=== PATIENT | male | born 1940 | race Caucasian/White ===

== ENCOUNTER 2018-11-29 08:24 | Inpatient (IN) | payer OTHER ==
[~2018-11-29 08:24] MED LIST: METOPROLOL 5 MG INJ
[2018-11-29] MEDS: VANCOMYCIN 1 GM (PMX) 250 ML IVPB (08:30)
[2018-11-29] MEDS: morphine 4 MG/ML VIAL IV ×2 (08:58→11:27)
[2018-11-29] MEDS: ACETAMINOPHEN 325 MG TAB PO (08:58)
[2018-11-29] MEDS: ONDANSETRON 4 MG INJ IV ×2 (08:58→11:28)
[2018-11-29] MEDS: SODIUM CHLORIDE 0.9% 1L BAG IV* (09:00)
[2018-11-29] MEDS: AZTREONAM 1 GM/NS (PMX) 50 ML IVPB (09:02)
[2018-11-29 09:04] LABS: ADD MAN DIFF? NO
[2018-11-29 09:11] LABS: WHITE BLOOD COUNT 14.1 10^3/ul (4.8-10.8)
[2018-11-29 09:11] LABS: ABNORMAL IP MESSAGE 1; BASOPHILS % 0.2 % (0.0-2.0); HEMATOCRIT 30.5 % (42.0-52.0); HEMOGLOBIN 9.8 g/dl (14.0-18.0); LYMPHOCYTES # 0.8 10^3/ul (0.8-2.9); LYMPHOCYTES % 5.5 % (15.0-51.0); MEAN CORPUSCULAR HEMOGLOBIN 19.6 pg (29.0-33.0); MEAN CORPUSCULAR HGB CONC 32.1 g/dl (32.0-37.0); MONOCYTE # 0.9 10^3/ul (0.3-0.9); MONOCYTES % 6.5 % (0.0-11.0); NEUTROPHIL # 12.3 10^3/ul (1.6-7.5); NEUTROPHILS % 86.8 % (39.0-77.0); NUCLEATED RED BLOOD CELLS% 0.1 /100WBC (0.0-0.0); PLATELET COUNT 203 10^3/UL (140-415); POSITIVE DIFF @See below; RED CELL DISTRIBUTION WIDTH 22.7 % (11.5-14.5)
[2018-11-29 09:24] LABS: LIPASE 44 U/L (23-300)
[2018-11-29 09:26] LABS: ADD UMIC YES; ALANINE AMINOTRANSFERASE 100 IU/L (13-69); ALBUMIN 3.6 g/dl (3.3-4.9); ALBUMIN/GLOBULIN RATIO 1.02; ALKALINE PHOSPHATASE 439 IU/L (42-121); ANION GAP 11 (5-13); ASPARTATE AMINO TRANSFERASE 122 IU/L (15-46); BLOOD UREA NITROGEN 29 mg/dl (7-20); CALCIUM 10.9 mg/dl (8.4-10.2); CARBON DIOXIDE 30 mmol/L (21-31); CHLORIDE 92 mmol/L (97-110); GLUCOSE 233 mg/dl (70-220); POTASSIUM 4.7 mmol/L (3.5-5.1); SODIUM 133 mmol/L (135-144); TOTAL PROTEIN 7.1 g/dl (6.1-8.1); UR ASCORBIC ACID 20 mg/dL (NEGATIVE); UR BACTERIA FEW /HPF (NONE SEEN); UR BILIRUBIN (Dip) NEGATIVE (NEGATIVE); UR BLOOD (Dip) 2+ mg/dL (NEGATIVE); UR CLARITY TURBID (CLEAR); UR COLOR YELLOW (YELLOW); UR GLUCOSE (Dip) NEGATIVE (NEGATIVE); UR KETONES (Dip) 1+ mg/dL (NEGATIVE); UR LEUKOCYTE ESTERASE (Dip) NEGATIVE Leu/ul (NEGATIVE); UR MUCUS FEW /HPF (NONE SEEN); UR NITRITE (Dip) NEGATIVE (NEGATIVE); UR RBC 122 /HPF (0-5); UR SPECIFIC GRAVITY (Dip) 1.018 (1.003-1.030); UR TOTAL PROTEIN (Dip) 2+ mg/dl (NEGATIVE); UR URIC ACID CRYSTAL MANY /HPF (NONE SEEN); UR UROBILINOGEN (Dip) 1+ mg/dL (NEGATIVE); UR WBC 29 /HPF (0-5)
[2018-11-29 09:27] LABS: AMMONIA < 9 umol/l (9-30)
[2018-11-29 09:31] LABS: INR 1.89; PROTIME 21.8 Sec (11.9-14.9); PT RATIO 1.7
[2018-11-29 09:32] LABS: PARTIAL THROMBOPLASTIN TIME 37.7 Sec (23.0-35.0)
[2018-11-29 09:37] LABS: TROPONIN-I 0.082 ng/ml (0.000-0.120)
[2018-11-29] MEDS ORDERED: ONDANSETRON 4 MG INJ IV ×2 (11:30→12:00)
[2018-11-29] MEDS ORDERED: ACETAMINOPHEN 325 MG TAB PO (11:30)
[2018-11-29] MEDS ORDERED: NACL 0.9% 3 ML SYG IV (12:00)
[2018-11-29] MEDS ORDERED: HYDROCODONE/APAP (5/325) TAB PO (12:00)
[2018-11-29] MEDS ORDERED: BISACODYL 10 MG SUPP PR (12:00)
[2018-11-29] MEDS ORDERED: DOCUSATE SODIUM 100 MG CAP PO (12:00)
[2018-11-29] MEDS: SOD CHLORIDE 0.9% 1,000 ML IV ×3 (12:36→21:52)
[2018-11-29] MEDS: morphine 2 MG INJ IV ×2 (14:35→22:02)
[2018-11-29 14:38] LABS: LACTIC ACID 1.1 mmol/L (0.5-2.0)
[2018-11-29] MEDS: FAMOTIDINE 20 MG INJ IV (15:14)
[2018-11-29] MEDS ORDERED: GLUCAGON 1 MG INJ IM (19:30)
[2018-11-29] MEDS ORDERED: GLUCOSE GEL 15 GRAM TUBE PO ×2 (19:30)
[2018-11-29] MEDS ORDERED: DEXTROSE 50% 50 ML SYRINGE IV ×2 (19:30)
[2018-11-29] MEDS ORDERED: GLUCOSE GEL 15 GRAM TUBE BUCCAL (19:30)
[2018-11-29] MEDS ORDERED: NON-FORMULARY/PATIENT OWN MED (Rosuvastatin Calcium* (Crestor*) 20 MG) PO (21:00)
[2018-11-29] MEDS: DOCUSATE SODIUM 100 MG CAP PO (21:38)
[2018-11-29] MEDS: FOLIC ACID 0.4 MG TAB PO (21:38)
[2018-11-29] MEDS: SENNA TAB PO (21:38)
[2018-11-29] MEDS: GABAPENTIN 300 MG CAP PO (21:38)
[2018-11-29] MEDS: DOXAZOSIN 4 MG TAB PO (21:38)
[2018-11-29] MEDS: ALLOPURINOL 100 MG TAB PO (21:38)
[2018-11-29] MEDS: ATORVASTATIN 80 MG TAB PO (21:38)
[2018-11-29] MEDS: AZTREONAM 2 GM in SOD CHLORIDE 0.9% 100 ML IVPB (21:43)
[2018-11-29] MEDS: INSULIN GLARGINE [LANTus] (100 UNITS/ML) SYG SC (21:48)
[2018-11-29] MEDS: INSULIN ASPART [NOVOLOG] 3 ML PEN SC (21:48)
[2018-11-29] MEDS: RIVAROXABAN 20 MG TABLET PO (21:53)
[2018-11-29] MEDS ORDERED: VANCOMYCIN IV PER PHARMACY XX (23:30)
[2018-11-30] MEDS: VANCOMYCIN HCL 1.5 GM in SOD CHLORIDE 0.9% 250 ML IVPB (00:04)
[2018-11-30] MEDS: ACCU-CHEK XX (02:05)
[2018-11-30] MEDS: ACETAMINOPHEN 325 MG TAB PO ×2 (03:24→10:25)
[2018-11-30] MEDS: SOD CHLORIDE 0.9% 1,000 ML IV ×4 (04:18→22:34)
[2018-11-30 05:14] LABS: HAAIG REFLEX REFLEX FILED
[2018-11-30] MEDS: AZTREONAM 2 GM in SOD CHLORIDE 0.9% 100 ML IVPB ×4 (05:51→22:34)
[2018-11-30] MEDS ORDERED: PANTOPRAZOLE 40 MG INJ IV (06:00)
[2018-11-30 06:22] LABS: FREE THYROXINE INDEX (Calc) 2.19 ug/ml (0.65-3.89); T3 UPTAKE 53.5 % (23.5-40.5); T4 (THYROXINE) 4.1 ug/dl (5.5-11.0)
[2018-11-30 06:24] LABS: ALANINE AMINOTRANSFERASE 126 IU/L (13-69); ALBUMIN 2.6 g/dl (3.3-4.9); ALBUMIN/GLOBULIN RATIO 1.04; ALKALINE PHOSPHATASE 297 IU/L (42-121); ANION GAP 6 (5-13); ASPARTATE AMINO TRANSFERASE 162 IU/L (15-46); BILIRUBIN,INDIRECT 0.5 mg/dl (0-1.1); BILIRUBIN,TOTAL 0.5 mg/dl (0.2-1.3); BLOOD UREA NITROGEN 28 mg/dl (7-20); CALCIUM 9.8 mg/dl (8.4-10.2); CARBON DIOXIDE 30 mmol/L (21-31); CHLORIDE 100 mmol/L (97-110); CHOL/HDL RATIO 4.7 RATIO; CHOLESTEROL 100 mg/dl (100-200); CREATININE 0.84 mg/dl (0.61-1.24); GLUCOSE 174 mg/dl (70-220); HDL CHOLESTEROL 21 mg/dl (31-75); LDL CHOLESTEROL,CALCULATED 56 mg/dl; MAGNESIUM 1.5 mg/dl (1.7-2.5); PHOSPHORUS 3.4 mg/dl (2.5-4.9); POTASSIUM 4.2 mmol/L (3.5-5.1); SODIUM 136 mmol/L (135-144); TOTAL PROTEIN 5.1 g/dl (6.1-8.1); TRIGLYCERIDES 114 mg/dl (0-149)
[2018-11-30 06:36] LABS: THYROID STIMULATING HORMONE 0.302 MIU/L (0.465-4.680)
[2018-11-30 06:38] LABS: HEPATITIS B SURFACE ANTIGEN NEGATIVE (NEGATIVE)
[2018-11-30 06:56] LABS: HEPATITIS B CORE ANTIBODY NEGATIVE (NEGATIVE); HEPATITIS C VIRAL ANTIBODY NEGATIVE (NEGATIVE)
[2018-11-30] MEDS ORDERED: AMIODARONE 150 MG INJ (07:00)
[2018-11-30] MEDS ORDERED: FUROSEMIDE 20 MG INJ (07:00)
[2018-11-30 07:24] LABS: HEMOGLOBIN A1C 8.2 % (0-5.9)
[2018-11-30] MEDS: INSULIN ASPART [NOVOLOG] 3 ML PEN SC ×6 (08:00→18:12)
[2018-11-30] MEDS: morphine 2 MG INJ IV (08:25)
[2018-11-30] MEDS: FLUTICASONE/VILANTEROL 100-25 INH (08:29)
[2018-11-30] MEDS: FUROSEMIDE 20 MG TAB PO (09:00)
[2018-11-30] MEDS: FOLIC ACID 0.4 MG TAB PO ×2 (09:00→21:12)
[2018-11-30] MEDS: GABAPENTIN 300 MG CAP PO ×3 (09:00→21:13)
[2018-11-30] MEDS: FAMOTIDINE 20 MG TAB PO (09:00)
[2018-11-30] MEDS: ASCORBIC ACID 500 MG TAB PO (09:00)
[2018-11-30] MEDS: FISH OIL 1,000 MG CAP PO (09:00)
[2018-11-30] MEDS: SENNA TAB PO ×2 (09:00→21:13)
[2018-11-30] MEDS: METOPROLOL (XL) 25 MG TAB PO (09:00)
[2018-11-30] MEDS ORDERED: MULTIVITAMIN PO (09:00)
[2018-11-30] MEDS: FINASTERIDE 5 MG TAB PO (09:00)
[2018-11-30] MEDS: MULTIVITAMINS THERAPEUTIC TAB PO (09:00)
[2018-11-30] MEDS: DOCUSATE SODIUM 100 MG CAP PO ×2 (09:00→21:12)
[2018-11-30] MEDS: ALLOPURINOL 100 MG TAB PO ×2 (09:00→21:13)
[2018-11-30] MEDS ORDERED: NON-FORMULARY/PATIENT OWN MED (Omega-3/Dha/Epa/Fish Oil (Fish Oil 1,000 Mg Softgel) 1 CAP) PO (09:00)
[2018-11-30] MEDS ORDERED: [UNRECOGNIZED DRUG - OTHER] PO (09:00)
[2018-11-30] MEDS ORDERED: FAMOTIDINE 20 MG TAB PO (09:00)
[2018-11-30 09:03] LABS: ADD MAN DIFF? NO
[2018-11-30 09:05] LABS: WHITE BLOOD COUNT 8.8 10^3/ul (4.8-10.8)
[2018-11-30 09:05] LABS: ABNORMAL IP MESSAGE 1; BASOPHILS % 0.2 % (0.0-2.0); HEMOGLOBIN 7.7 g/dl (14.0-18.0); LYMPHOCYTES # 0.6 10^3/ul (0.8-2.9); MEAN CORPUSCULAR HEMOGLOBIN 19.6 pg (29.0-33.0); MEAN CORPUSCULAR HGB CONC 32.1 g/dl (32.0-37.0); MEAN CORPUSCULAR VOLUME 61.1 fl (82.0-101.0); MONOCYTE # 0.7 10^3/ul (0.3-0.9); MONOCYTES % 7.5 % (0.0-11.0); NEUTROPHIL # 7.4 10^3/ul (1.6-7.5); NEUTROPHILS % 84.4 % (39.0-77.0); POSITIVE DIFF @See below; RED BLOOD COUNT 3.93 10^6/ul (4.70-6.10); RED CELL DISTRIBUTION WIDTH 22.4 % (11.5-14.5)
[2018-11-30 09:14] LABS: PLATELET COUNT 160 10^3/UL (140-415)
[2018-11-30] MEDS ORDERED: ALBUTEROL/IPRATROPIUM (NEB) 3 ML AMP HHN (10:00)
[2018-11-30] MEDS: MAGNESIUM SULFATE 2 GM/50 ML 50 ML IVPB (10:27)
[2018-11-30] MEDS: INSULIN GLARGINE [LANTus] (100 UNITS/ML) SYG SC (11:58)
[2018-11-30] MEDS: VANCOMYCIN HCL 1.25 GM in SOD CHLORIDE 0.9% 250 ML IVPB (12:39)
[2018-11-30] MEDS: MAGNESIUM HYDROXIDE 30ML CUP PO (12:46)
[2018-11-30] MEDS: HYDROCODONE/APAP (5/325) TAB PO (18:03)
[2018-11-30] MEDS: RIVAROXABAN 20 MG TABLET PO (18:03)
[2018-11-30] MEDS: ACETAMINOPHEN 650 MG SUPP PR (18:28)
[2018-11-30] MEDS: LACTATED RINGER'S 1,000 ML IV (19:10)
[2018-11-30 19:18] LABS: ADD MAN DIFF? NO; HAAIG REFLEX REFLEX FILED
[2018-11-30 19:20] LABS: ABNORMAL IP MESSAGE 1; BASOPHILS % 0.2 % (0.0-2.0); EOSINOPHILS % 0.1 % (0.0-7.0); HEMATOCRIT 25.3 % (42.0-52.0); HEMOGLOBIN 8.1 g/dl (14.0-18.0); LYMPHOCYTES # 0.5 10^3/ul (0.8-2.9); LYMPHOCYTES % 4.5 % (15.0-51.0); MEAN CORPUSCULAR HEMOGLOBIN 19.5 pg (29.0-33.0); MEAN CORPUSCULAR VOLUME 60.8 fl (82.0-101.0); MONOCYTE # 0.7 10^3/ul (0.3-0.9); MONOCYTES % 6.2 % (0.0-11.0); NEUTROPHILS % 88.4 % (39.0-77.0); PLATELET COUNT 135 10^3/UL (140-415); POSITIVE DIFF @See below; RED BLOOD COUNT 4.16 10^6/ul (4.70-6.10); RED CELL DISTRIBUTION WIDTH 22.5 % (11.5-14.5)
[2018-11-30 19:20] LABS: WHITE BLOOD COUNT 11.4 10^3/ul (4.8-10.8)
[2018-11-30 19:24] LABS: AADO2 Arterial 74.6 mmHg (7.0-24.0); Allen Test ACCEPTAB; Arterial Base Excess 0.5 mmol/L (-3.0-3); Arterial Blood Gas Oxygen Sat 96.1 mmHG (95.0-100.0); Arterial COHb 0.1 % (0.0-3.0); Arterial Fraction of Oxyhgb 95.7 % (93.0-99.0); Arterial HCO3 23.7 mmol/L (22.0-26.0); Arterial MetHb 0.3 % (0.0-1.5); Arterial pCO2 32.5 mmhg (35-45); MODE NASAL CANNULA; Site Right Radial
[2018-11-30] MEDS ORDERED: METOPROLOL 5 MG INJ IV (19:30)
[2018-11-30 19:57] LABS: LACTIC ACID 2.3 mmol/L (0.5-2.0)
[2018-11-30 20:17] LABS: TROPONIN-I 0.126 ng/ml (0.000-0.120)
[2018-11-30 20:24] LABS: HEPATITIS B SURFACE ANTIGEN NEGATIVE (NEGATIVE)
[2018-11-30] MEDS: LORAZEPAM 2 MG INJ IV (20:25)
[2018-11-30] MEDS: METOPROLOL 5 MG INJ IV (20:25)
[2018-11-30] MEDS: AMIODARONE 150MG/D5W BOLUS 100 ML IV (20:25)
[2018-11-30 20:42] LABS: HEPATITIS B CORE ANTIBODY NEGATIVE (NEGATIVE); HEPATITIS C VIRAL ANTIBODY NEGATIVE (NEGATIVE)
[2018-11-30 20:44] LABS: B-TYPE NATRIURETIC PEPTIDE 6360 PG/ML (0-450)
[2018-11-30 20:52] LABS: FREE T3 2.22 pg/ml (2.77-5.27)
[2018-11-30] MEDS: DOXAZOSIN 4 MG TAB PO (21:00)
[2018-11-30] MEDS: ATORVASTATIN 80 MG TAB PO (21:12)
[2018-11-30 21:38] LABS: ANION GAP 7 (5-13); BLOOD UREA NITROGEN 31 mg/dl (7-20); CALCIUM 9.8 mg/dl (8.4-10.2); CARBON DIOXIDE 28 mmol/L (21-31); CHLORIDE 100 mmol/L (97-110); CREATININE 1.03 mg/dl (0.61-1.24); GLUCOSE 206 mg/dl (70-220); POTASSIUM 3.8 mmol/L (3.5-5.1); SODIUM 135 mmol/L (135-144)
[2018-12-01] MEDS: INSULIN ASPART [NOVOLOG] 3 ML PEN SC ×8 (00:02→20:31)
[2018-12-01] MEDS: ACETAMINOPHEN 325 MG TAB PO (01:51)
[2018-12-01] MEDS: ACCU-CHEK XX (02:00)
[2018-12-01] MEDS: VANCOMYCIN HCL 1.25 GM in SOD CHLORIDE 0.9% 250 ML IVPB ×2 (02:00→15:31)
[2018-12-01] MEDS: LEVALBUTEROL (NEB) 0.63 MG/3 ML AMP HHN (02:33)
[2018-12-01] MEDS: AZTREONAM 2 GM in SOD CHLORIDE 0.9% 100 ML IVPB (05:55)
[2018-12-01] MEDS: LACTATED RINGER'S 1,000 ML IV ×2 (05:56→14:03)
[2018-12-01] MEDS ORDERED: LEVALBUTEROL (NEB) 0.31 MG/3 ML AMP HHN (06:00)
[2018-12-01 07:04] LABS: MAGNESIUM 2.1 mg/dl (1.7-2.5)
[2018-12-01 07:05] LABS: TROPONIN-I 0.419 ng/ml (0.000-0.120)
[2018-12-01 07:11] LABS: LACTIC ACID 1.2 mmol/L (0.5-2.0)
[2018-12-01] MEDS: AMIODARONE 900 MG in DEXTROSE 5% 482 ML IV (07:57)
[2018-12-01] MEDS: morphine 2 MG INJ IV ×3 (08:49→22:16)
[2018-12-01] MEDS: FLUTICASONE/VILANTEROL 100-25 INH (08:54)
[2018-12-01] MEDS: FISH OIL 1,000 MG CAP PO (08:54)
[2018-12-01] MEDS: FAMOTIDINE 20 MG TAB PO (08:54)
[2018-12-01] MEDS: GABAPENTIN 300 MG CAP PO ×3 (08:54→20:34)
[2018-12-01] MEDS: FOLIC ACID 0.4 MG TAB PO ×2 (08:54→20:32)
[2018-12-01] MEDS: ASCORBIC ACID 500 MG TAB PO (08:54)
[2018-12-01] MEDS: MULTIVITAMINS THERAPEUTIC TAB PO (08:54)
[2018-12-01] MEDS: SENNA TAB PO ×2 (08:54→20:34)
[2018-12-01] MEDS: DOCUSATE SODIUM 100 MG CAP PO ×2 (08:54→20:32)
[2018-12-01] MEDS: FINASTERIDE 5 MG TAB PO (08:55)
[2018-12-01] MEDS: FUROSEMIDE 20 MG TAB PO (08:55)
[2018-12-01] MEDS: ALLOPURINOL 100 MG TAB PO ×2 (08:55→20:32)
[2018-12-01] MEDS: METOPROLOL (XL) 25 MG TAB PO (08:55)
[2018-12-01 10:45] LABS: ADD MAN DIFF? NO
[2018-12-01 10:54] LABS: ABNORMAL IP MESSAGE 1; BASOPHILS % 0.2 % (0.0-2.0); HEMATOCRIT 24.8 % (42.0-52.0); LYMPHOCYTES # 0.6 10^3/ul (0.8-2.9); LYMPHOCYTES % 4.5 % (15.0-51.0); MEAN CORPUSCULAR HEMOGLOBIN 19.7 pg (29.0-33.0); MEAN CORPUSCULAR HGB CONC 32.3 g/dl (32.0-37.0); MEAN CORPUSCULAR VOLUME 61.1 fl (82.0-101.0); MONOCYTE # 0.7 10^3/ul (0.3-0.9); MONOCYTES % 5.5 % (0.0-11.0); NEUTROPHIL # 11.6 10^3/ul (1.6-7.5); NEUTROPHILS % 88.9 % (39.0-77.0); NUCLEATED RED BLOOD CELLS% 0.2 /100WBC (0.0-0.0); PLATELET COUNT 154 10^3/UL (140-415); POSITIVE DIFF @See below; RED BLOOD COUNT 4.06 10^6/ul (4.70-6.10); RED CELL DISTRIBUTION WIDTH 22.7 % (11.5-14.5)
[2018-12-01 11:08] LABS: ALANINE AMINOTRANSFERASE 157 IU/L (13-69); ALBUMIN 2.9 g/dl (3.3-4.9); ALBUMIN/GLOBULIN RATIO 0.96; ALKALINE PHOSPHATASE 337 IU/L (42-121); ANION GAP 10 (5-13); ASPARTATE AMINO TRANSFERASE 162 IU/L (15-46); BILIRUBIN,INDIRECT 0.4 mg/dl (0-1.1); BILIRUBIN,TOTAL 0.4 mg/dl (0.2-1.3); BLOOD UREA NITROGEN 36 mg/dl (7-20); CALCIUM 10.2 mg/dl (8.4-10.2); CARBON DIOXIDE 26 mmol/L (21-31); CHLORIDE 100 mmol/L (97-110); GLUCOSE 268 mg/dl (70-220); POTASSIUM 4.5 mmol/L (3.5-5.1); SODIUM 136 mmol/L (135-144); TOTAL PROTEIN 5.9 g/dl (6.1-8.1)
[2018-12-01 11:41] LABS: VANCOMYCIN,TROUGH 16.8 ug/ml (10.0-20.0)
[2018-12-01 12:20] LABS: AADO2 Arterial 222.1 mmHg (7.0-24.0); Allen Test ACCEPTAB; Arterial Base Excess -0.9 mmol/L (-3.0-3); Arterial Blood Gas Oxygen Sat 96.5 mmHG (95.0-100.0); Arterial COHb 0.5 % (0.0-3.0); Arterial Fraction of Oxyhgb 95.6 % (93.0-99.0); Arterial MetHb 0.4 % (0.0-1.5); Arterial pCO2 47.9 mmhg (35-45); MODE AEROSOL MASK; Site Left Radial
[2018-12-01] MEDS ORDERED: FUROSEMIDE 40 MG INJ IM (12:30)
[2018-12-01] MEDS: LIDOCAINE 1% (MPF) 5 ML VIAL SC ×2 (13:00→14:48)
[2018-12-01] MEDS: FUROSEMIDE 40 MG INJ IV (13:04)
[2018-12-01] MEDS ORDERED: NORepinephrine 8MG/250 ML (PMX 250 ML IV (13:30)
[2018-12-01] MEDS: IPRATROPIUM (NEB) 0.5 MG/2.5 ML AMP HHN ×2 (14:00→20:37)
[2018-12-01] MEDS: MEROPENEM 500MG/50 ML (PMX) 50 ML IVPB (14:13)
[2018-12-01] MEDS: DIGOXIN 500 MCG INJ IV ×3 (15:30→23:04)
[2018-12-01] MEDS: LORAZEPAM 2 MG INJ IV (15:54)
[2018-12-01] MEDS: PHENYLephrine 20MG IN 250 ML 250 ML IV ×3 (16:39→23:48)
[2018-12-01] MEDS: INSULIN GLARGINE [LANTus] (100 UNITS/ML) SYG SC (20:30)
[2018-12-01] MEDS: DOXAZOSIN 4 MG TAB PO (20:32)
[2018-12-01] MEDS: ATORVASTATIN 80 MG TAB PO (20:32)
[2018-12-02] MEDS: ACCU-CHEK XX (02:04)
[2018-12-02] MEDS: MEROPENEM 500MG/50 ML (PMX) 50 ML IVPB (02:06)
[2018-12-02] MEDS: IPRATROPIUM (NEB) 0.5 MG/2.5 ML AMP HHN ×4 (02:43→19:59)
[2018-12-02] MEDS: PHENYLephrine 20MG IN 250 ML 250 ML IV ×3 (02:54→09:25)
[2018-12-02] MEDS: VANCOMYCIN HCL 1.25 GM in SOD CHLORIDE 0.9% 250 ML IVPB ×2 (03:16→14:56)
[2018-12-02] MEDS: LACTATED RINGER'S 1,000 ML IV (03:32)
[2018-12-02] MEDS: morphine 2 MG INJ IV ×2 (05:26→16:45)
[2018-12-02 05:36] LABS: AADO2 Arterial 92.6 mmHg (7.0-24.0); Arterial Blood Gas Oxygen Sat 95.5 mmHG (95.0-100.0); Arterial COHb 0.3 % (0.0-3.0); Arterial Fraction of Oxyhgb 94.8 % (93.0-99.0); Arterial HCO3 22.7 mmol/L (22.0-26.0); Arterial MetHb 0.4 % (0.0-1.5); Arterial pCO2 33.4 mmhg (35-45); Blood Gas IEPAP 20/8; Blood Gas PS 12; MODE MASK - BIPAP; Site LB
[2018-12-02 05:39] LABS: ADD MAN DIFF? NO
[2018-12-02 05:51] LABS: WHITE BLOOD COUNT 9.4 10^3/ul (4.8-10.8)
[2018-12-02 05:51] LABS: ABNORMAL IP MESSAGE 1; BASOPHILS % 0.1 % (0.0-2.0); HEMATOCRIT 20.4 % (42.0-52.0); LYMPHOCYTES # 0.8 10^3/ul (0.8-2.9); MEAN CORPUSCULAR HEMOGLOBIN 19.5 pg (29.0-33.0); MEAN CORPUSCULAR HGB CONC 32.4 g/dl (32.0-37.0); MEAN CORPUSCULAR VOLUME 60.2 fl (82.0-101.0); MONOCYTE # 0.6 10^3/ul (0.3-0.9); MONOCYTES % 6.3 % (0.0-11.0); NUCLEATED RED BLOOD CELLS% 0.3 /100WBC (0.0-0.0); PLATELET COUNT 124 10^3/UL (140-415); POSITIVE DIFF @See below; RED BLOOD COUNT 3.39 10^6/ul (4.70-6.10); RED CELL DISTRIBUTION WIDTH 22.4 % (11.5-14.5)
[2018-12-02 05:54] LABS: CREATINE KINASE 36 IU/L (23-200)
[2018-12-02 05:58] LABS: CHOL/HDL RATIO 5.5 RATIO; CHOLESTEROL 78 mg/dl (100-200); HDL CHOLESTEROL 14 mg/dl (31-75); LDL CHOLESTEROL,CALCULATED 39 mg/dl; TRIGLYCERIDES 127 mg/dl (0-149)
[2018-12-02 05:58] LABS: MAGNESIUM 1.7 mg/dl (1.7-2.5)
[2018-12-02 06:00] LABS: ANION GAP 5 (5-13); BLOOD UREA NITROGEN 38 mg/dl (7-20); CARBON DIOXIDE 26 mmol/L (21-31); CHLORIDE 105 mmol/L (97-110); GLUCOSE 155 mg/dl (70-220); POTASSIUM 4.2 mmol/L (3.5-5.1); SODIUM 136 mmol/L (135-144)
[2018-12-02 06:02] LABS: HEMOGLOBIN 6.6 g/dl (14.0-18.0)
[2018-12-02 06:05] LABS: B-TYPE NATRIURETIC PEPTIDE 28300 PG/ML (0-450)
[2018-12-02 06:07] LABS: CK INDEX 8.9
[2018-12-02 06:24] LABS: ADD MAN DIFF? NO
[2018-12-02 06:26] LABS: THYROID STIMULATING HORMONE 0.655 MIU/L (0.465-4.680)
[2018-12-02 06:28] LABS: ABNORMAL IP MESSAGE 1; BASOPHILS % 0.3 % (0.0-2.0); EOSINOPHILS % 0.1 % (0.0-7.0); HEMATOCRIT 21.6 % (42.0-52.0); LYMPHOCYTES # 0.9 10^3/ul (0.8-2.9); MEAN CORPUSCULAR HEMOGLOBIN 19.5 pg (29.0-33.0); MEAN CORPUSCULAR HGB CONC 32.4 g/dl (32.0-37.0); MEAN CORPUSCULAR VOLUME 60.2 fl (82.0-101.0); MONOCYTE # 0.7 10^3/ul (0.3-0.9); MONOCYTES % 6.7 % (0.0-11.0); NEUTROPHIL # 8.9 10^3/ul (1.6-7.5); NUCLEATED RED BLOOD CELLS% 0.2 /100WBC (0.0-0.0); PLATELET COUNT 139 10^3/UL (140-415); POSITIVE DIFF @See below; RED BLOOD COUNT 3.59 10^6/ul (4.70-6.10); RED CELL DISTRIBUTION WIDTH 22.5 % (11.5-14.5); TROPONIN-I 0.735 ng/ml (0.000-0.120)
[2018-12-02 06:28] LABS: WHITE BLOOD COUNT 10.6 10^3/ul (4.8-10.8)
[2018-12-02 06:29] LABS: CK-MB 3.21 ng/ml (0.0-2.4)
[2018-12-02] MEDS: SOD CHLORIDE 0.9% 250 ML IV* (06:51)
[2018-12-02] MEDS: INSULIN ASPART [NOVOLOG] 3 ML PEN SC ×7 (07:35→21:00)
[2018-12-02 08:03] LABS: IMMEDIATE SPIN CROSSMATCH 1 1
[2018-12-02] MEDS: FUROSEMIDE 20 MG TAB PO (08:19)
[2018-12-02] MEDS: FINASTERIDE 5 MG TAB PO (08:32)
[2018-12-02] MEDS: FOLIC ACID 0.4 MG TAB PO ×2 (08:32→21:10)
[2018-12-02] MEDS: ALLOPURINOL 100 MG TAB PO ×2 (08:32→21:10)
[2018-12-02] MEDS: GABAPENTIN 300 MG CAP PO ×3 (08:32→21:10)
[2018-12-02] MEDS: SENNA TAB PO ×2 (08:33→21:10)
[2018-12-02] MEDS: FISH OIL 1,000 MG CAP PO (08:33)
[2018-12-02] MEDS: MULTIVITAMINS THERAPEUTIC TAB PO (08:33)
[2018-12-02] MEDS: ASCORBIC ACID 500 MG TAB PO (08:33)
[2018-12-02] MEDS: METOPROLOL (XL) 25 MG TAB PO (08:33)
[2018-12-02] MEDS: DOCUSATE SODIUM 100 MG CAP PO ×2 (08:33→21:10)
[2018-12-02] MEDS: FAMOTIDINE 20 MG TAB PO (08:33)
[2018-12-02] MEDS: DIGOXIN 500 MCG INJ IV (08:34)
[2018-12-02] MEDS: FUROSEMIDE 20 MG INJ IV (08:34)
[2018-12-02] MEDS: ENOXAPARIN 40 MG/0.4 ML SYG SC (08:35)
[2018-12-02] MEDS ORDERED: ENOXAPARIN 60 MG/0.6 ML SYG SC ×2 (09:00)
[2018-12-02 09:05] LABS: FREE T4 (FREE THYROXINE) 1.02 ng/dl (0.78-2.44)
[2018-12-02] MEDS: FLUTICASONE/VILANTEROL 100-25 INH (09:38)
[2018-12-02] MEDS: DOXAZOSIN 4 MG TAB PO (21:10)
[2018-12-02] MEDS: INSULIN GLARGINE [LANTus] (100 UNITS/ML) SYG SC (21:12)
[2018-12-02] MEDS: ATORVASTATIN 80 MG TAB PO (21:25)
[2018-12-03] MEDS: IPRATROPIUM (NEB) 0.5 MG/2.5 ML AMP HHN ×4 (00:14→20:38)
[2018-12-03] MEDS: LEVALBUTEROL (NEB) 1.25 MG/0.5 ML AMP HHN ×3 (00:15→20:38)
[2018-12-03] MEDS: ACCU-CHEK XX (02:00)
[2018-12-03] MEDS: VANCOMYCIN HCL 1.25 GM in SOD CHLORIDE 0.9% 250 ML IVPB ×2 (03:17→14:54)
[2018-12-03 05:12] LABS: ADD MAN DIFF? NO
[2018-12-03 05:15] LABS: WHITE BLOOD COUNT 10.6 10^3/ul (4.8-10.8)
[2018-12-03 05:15] LABS: ABNORMAL IP MESSAGE 1; BASOPHILS % 0.2 % (0.0-2.0); EOSINOPHILS % 0.2 % (0.0-7.0); HEMATOCRIT 24.5 % (42.0-52.0); HEMOGLOBIN 7.8 g/dl (14.0-18.0); LYMPHOCYTES # 0.8 10^3/ul (0.8-2.9); LYMPHOCYTES % 7.5 % (15.0-51.0); MEAN CORPUSCULAR HEMOGLOBIN 20.1 pg (29.0-33.0); MEAN CORPUSCULAR HGB CONC 31.8 g/dl (32.0-37.0); MEAN CORPUSCULAR VOLUME 63.1 fl (82.0-101.0); MONOCYTE # 0.7 10^3/ul (0.3-0.9); MONOCYTES % 6.1 % (0.0-11.0); NEUTROPHIL # 9.1 10^3/ul (1.6-7.5); NEUTROPHILS % 85.3 % (39.0-77.0); NUCLEATED RED BLOOD CELLS% 0.2 /100WBC (0.0-0.0); PLATELET COUNT 129 10^3/UL (140-415); POSITIVE DIFF @See below; RED BLOOD COUNT 3.88 10^6/ul (4.70-6.10); RED CELL DISTRIBUTION WIDTH 25.3 % (11.5-14.5)
[2018-12-03 05:50] LABS: DIGOXIN 1.3 ng/ml (1.0-2.0)
[2018-12-03 05:53] LABS: ALANINE AMINOTRANSFERASE 246 IU/L (13-69); ALBUMIN 2.4 g/dl (3.3-4.9); ALBUMIN/GLOBULIN RATIO 0.88; ALKALINE PHOSPHATASE 258 IU/L (42-121); ANION GAP 5 (5-13); ASPARTATE AMINO TRANSFERASE 213 IU/L (15-46); BILIRUBIN,INDIRECT 0.6 mg/dl (0-1.1); BILIRUBIN,TOTAL 0.6 mg/dl (0.2-1.3); BLOOD UREA NITROGEN 37 mg/dl (7-20); CALCIUM 10.1 mg/dl (8.4-10.2); CARBON DIOXIDE 29 mmol/L (21-31); CHLORIDE 102 mmol/L (97-110); CREATINE KINASE 26 IU/L (23-200); CREATININE 0.79 mg/dl (0.61-1.24); GLUCOSE 112 mg/dl (70-220); MAGNESIUM 1.8 mg/dl (1.7-2.5); SODIUM 136 mmol/L (135-144); TOTAL PROTEIN 5.1 g/dl (6.1-8.1)
[2018-12-03 05:56] LABS: B-TYPE NATRIURETIC PEPTIDE 26900 PG/ML (0-450)
[2018-12-03] MEDS: HYDROCODONE/APAP (5/325) TAB PO (07:31)
[2018-12-03] MEDS: INSULIN ASPART [NOVOLOG] 3 ML PEN SC ×7 (07:35→20:47)
[2018-12-03] MEDS: FUROSEMIDE 40 MG INJ IV (08:38)
[2018-12-03] MEDS: FLUTICASONE/VILANTEROL 100-25 INH (08:39)
[2018-12-03] MEDS: GABAPENTIN 300 MG CAP PO ×3 (08:42→20:14)
[2018-12-03] MEDS: FISH OIL 1,000 MG CAP PO (08:42)
[2018-12-03 08:43] LABS: AADO2 Arterial 109.8 mmHg (7.0-24.0); Allen Test ACCEPTAB; Arterial Base Excess -0.3 mmol/L (-3.0-3); Arterial Blood Gas Oxygen Sat 94.1 mmHG (95.0-100.0); Arterial COHb 0.5 % (0.0-3.0); Arterial Fraction of Oxyhgb 93.3 % (93.0-99.0); Arterial HCO3 24.4 mmol/L (22.0-26.0); Arterial MetHb 0.4 % (0.0-1.5); Arterial pCO2 40.1 mmhg (35-45); MODE NASAL CANNULA; Site Right Radial
[2018-12-03] MEDS: MULTIVITAMINS THERAPEUTIC TAB PO (08:43)
[2018-12-03] MEDS: ASCORBIC ACID 500 MG TAB PO (08:43)
[2018-12-03] MEDS: FOLIC ACID 0.4 MG TAB PO ×2 (08:43→20:13)
[2018-12-03] MEDS: ALLOPURINOL 100 MG TAB PO ×2 (08:43→20:14)
[2018-12-03] MEDS: FAMOTIDINE 20 MG TAB PO (08:43)
[2018-12-03] MEDS: SENNA TAB PO ×2 (08:43→20:14)
[2018-12-03] MEDS: DOCUSATE SODIUM 100 MG CAP PO ×2 (08:44→20:14)
[2018-12-03] MEDS: ENOXAPARIN 40 MG/0.4 ML SYG SC (08:49)
[2018-12-03] MEDS: METOPROLOL (XL) 25 MG TAB PO (08:50)
[2018-12-03] MEDS: FINASTERIDE 5 MG TAB PO (08:50)
[2018-12-03] MEDS: PHYTONADIONE 5 MG in DEXTROSE 5% 50 ML IVPB (10:45)
[2018-12-03] MEDS: morphine 2 MG INJ IV ×3 (12:08→20:48)
[2018-12-03] MEDS: ALTEPLASE (CATHFLO) 2 MG INJ CATHETER ×3 (15:58→21:55)
[2018-12-03] MEDS: FUROSEMIDE 20 MG INJ IV (18:05)
[2018-12-03] MEDS: DOXAZOSIN 4 MG TAB PO (20:14)
[2018-12-03] MEDS: ATORVASTATIN 80 MG TAB PO (20:14)
[2018-12-03] MEDS: INSULIN GLARGINE [LANTus] (100 UNITS/ML) SYG SC (20:16)
[2018-12-03] MEDS: LORAZEPAM 2 MG INJ IV (20:54)
[2018-12-04] MEDS: LEVALBUTEROL (NEB) 1.25 MG/0.5 ML AMP HHN ×4 (01:46→19:20)
[2018-12-04] MEDS: IPRATROPIUM (NEB) 0.5 MG/2.5 ML AMP HHN ×4 (01:46→19:20)
[2018-12-04] MEDS: ACCU-CHEK XX (02:00)
[2018-12-04] MEDS: VANCOMYCIN HCL 1.25 GM in SOD CHLORIDE 0.9% 250 ML IVPB ×2 (02:34→15:11)
[2018-12-04] MEDS: FUROSEMIDE 20 MG INJ IV ×2 (05:29→18:03)
[2018-12-04 05:42] LABS: ADD MAN DIFF? NO
[2018-12-04 05:59] LABS: ABNORMAL IP MESSAGE 1; BASOPHILS % 0.2 % (0.0-2.0); EOSINOPHILS % 0.3 % (0.0-7.0); HEMATOCRIT 24.4 % (42.0-52.0); HEMOGLOBIN 7.9 g/dl (14.0-18.0); LYMPHOCYTES # 0.8 10^3/ul (0.8-2.9); LYMPHOCYTES % 7.4 % (15.0-51.0); MEAN CORPUSCULAR HEMOGLOBIN 20.3 pg (29.0-33.0); MEAN CORPUSCULAR HGB CONC 32.4 g/dl (32.0-37.0); MEAN CORPUSCULAR VOLUME 62.7 fl (82.0-101.0); MONOCYTE # 0.8 10^3/ul (0.3-0.9); NEUTROPHILS % 84.3 % (39.0-77.0); NUCLEATED RED BLOOD CELLS% 0.3 /100WBC (0.0-0.0); PLATELET COUNT 116 10^3/UL (140-415); POSITIVE DIFF @See below; RED BLOOD COUNT 3.89 10^6/ul (4.70-6.10); RED CELL DISTRIBUTION WIDTH 25.6 % (11.5-14.5)
[2018-12-04 05:59] LABS: WHITE BLOOD COUNT 10.7 10^3/ul (4.8-10.8)
[2018-12-04 06:18] LABS: ANION GAP 5 (5-13); BLOOD UREA NITROGEN 39 mg/dl (7-20); CALCIUM 10.1 mg/dl (8.4-10.2); CARBON DIOXIDE 30 mmol/L (21-31); CHLORIDE 102 mmol/L (97-110); CREATININE 0.86 mg/dl (0.61-1.24); GLUCOSE 68 mg/dl (70-220); POTASSIUM 4.1 mmol/L (3.5-5.1); SODIUM 137 mmol/L (135-144)
[2018-12-04 07:44] LABS: AADO2 Arterial 43.3 mmHg (7.0-24.0); Allen Test ACCEPTAB; Arterial Base Excess 3.7 mmol/L (-3.0-3); Arterial Blood Gas Oxygen Sat 91.9 mmHG (95.0-100.0); Arterial COHb 0.5 % (0.0-3.0); Arterial Fraction of Oxyhgb 91.1 % (93.0-99.0); Arterial HCO3 27.2 mmol/L (22.0-26.0); Arterial MetHb 0.4 % (0.0-1.5); Arterial pCO2 36.5 mmhg (35-45); MODE ROOM AIR; Site Right Radial
[2018-12-04] MEDS ORDERED: FUROSEMIDE 20 MG INJ IV (08:00)
[2018-12-04] MEDS: INSULIN ASPART [NOVOLOG] 3 ML PEN SC ×5 (08:47→20:34)
[2018-12-04] MEDS: ENOXAPARIN 40 MG/0.4 ML SYG SC (08:48)
[2018-12-04] MEDS: METOPROLOL (XL) 25 MG TAB PO (08:48)
[2018-12-04] MEDS: FISH OIL 1,000 MG CAP PO (09:33)
[2018-12-04] MEDS: MULTIVITAMINS THERAPEUTIC TAB PO (09:33)
[2018-12-04] MEDS: ALLOPURINOL 100 MG TAB PO ×2 (09:33→20:33)
[2018-12-04] MEDS: FINASTERIDE 5 MG TAB PO (09:33)
[2018-12-04] MEDS: DOCUSATE SODIUM 100 MG CAP PO ×2 (09:33→20:32)
[2018-12-04] MEDS: GABAPENTIN 300 MG CAP PO ×3 (09:33→20:33)
[2018-12-04] MEDS: ASCORBIC ACID 500 MG TAB PO (09:33)
[2018-12-04] MEDS: FAMOTIDINE 20 MG TAB PO (09:33)
[2018-12-04] MEDS: SENNA TAB PO ×2 (09:33→20:34)
[2018-12-04] MEDS: DIGOXIN 500 MCG INJ IV (09:34)
[2018-12-04] MEDS: morphine 2 MG INJ IV ×2 (09:37→17:03)
[2018-12-04] MEDS: FOLIC ACID 0.4 MG TAB PO ×2 (09:56→20:33)
[2018-12-04] MEDS: FLUTICASONE/VILANTEROL 100-25 INH (10:05)
[2018-12-04] MEDS ORDERED: GENTAMICIN IV PER PHARMACY XX (18:00)
[2018-12-04] MEDS ORDERED: GENTAMICIN 60 MG in SOD CHLORIDE 0.9% 50 ML IVPB (18:00)
[2018-12-04 19:17] LABS: IRON 32 ug/dl (35-150)
[2018-12-04 19:26] LABS: % IRON SATURATION 23 % SAT (22-52); TOTAL IRON BINDING CAPACITY 137 ug/dl (241-421)
[2018-12-04] MEDS: ATORVASTATIN 80 MG TAB PO (20:33)
[2018-12-04] MEDS: DOXAZOSIN 4 MG TAB PO (20:33)
[2018-12-04] MEDS: INSULIN GLARGINE [LANTus] (100 UNITS/ML) SYG SC (20:36)
[2018-12-04] MEDS: GENTAMICIN 350 MG in SOD CHLORIDE 0.9% 100 ML IVPB (20:54)
[2018-12-04 21:27] LABS: CANCER ANTIGEN 19-9 > 10000.0 U/ml (0.0-37.0)
[2018-12-05] MEDS: ACCU-CHEK XX (01:42)
[2018-12-05] MEDS: IPRATROPIUM (NEB) 0.5 MG/2.5 ML AMP HHN ×4 (01:46→20:19)
[2018-12-05] MEDS: LEVALBUTEROL (NEB) 1.25 MG/0.5 ML AMP HHN ×4 (01:46→20:19)
[2018-12-05 03:12] LABS: VANCOMYCIN,TROUGH 31.1 ug/ml (10.0-20.0)
[2018-12-05] MEDS: morphine 2 MG INJ IV ×2 (03:48→09:15)
[2018-12-05 05:05] LABS: ADD MAN DIFF? NO
[2018-12-05 05:12] LABS: WHITE BLOOD COUNT 11.6 10^3/ul (4.8-10.8)
[2018-12-05 05:12] LABS: ABNORMAL IP MESSAGE 1; BASOPHILS % 0.3 % (0.0-2.0); EOSINOPHILS # 0.1 10^3/ul (0.0-0.5); EOSINOPHILS % 0.5 % (0.0-7.0); HEMATOCRIT 26.4 % (42.0-52.0); HEMOGLOBIN 8.5 g/dl (14.0-18.0); LYMPHOCYTES # 0.8 10^3/ul (0.8-2.9); LYMPHOCYTES % 7.2 % (15.0-51.0); MEAN CORPUSCULAR HEMOGLOBIN 20.2 pg (29.0-33.0); MEAN CORPUSCULAR HGB CONC 32.2 g/dl (32.0-37.0); MEAN CORPUSCULAR VOLUME 62.9 fl (82.0-101.0); MONOCYTE # 0.8 10^3/ul (0.3-0.9); MONOCYTES % 6.8 % (0.0-11.0); NEUTROPHIL # 9.8 10^3/ul (1.6-7.5); NEUTROPHILS % 84.2 % (39.0-77.0); NUCLEATED RED BLOOD CELLS # 0.1 10^3/ul (0.0-0.0); NUCLEATED RED BLOOD CELLS% 0.4 /100WBC (0.0-0.0); PLATELET COUNT 136 10^3/UL (140-415); POSITIVE DIFF @See below; RED CELL DISTRIBUTION WIDTH 25.9 % (11.5-14.5)
[2018-12-05 05:26] LABS: PROTIME 17.3 Sec (11.9-14.9); PT RATIO 1.4
[2018-12-05 05:28] LABS: DIGOXIN 0.9 ng/ml (1.0-2.0)
[2018-12-05 05:39] LABS: ALANINE AMINOTRANSFERASE 241 IU/L (13-69); ALBUMIN 2.6 g/dl (3.3-4.9); ALBUMIN/GLOBULIN RATIO 0.83; ALKALINE PHOSPHATASE 310 IU/L (42-121); ANION GAP 5 (5-13); ASPARTATE AMINO TRANSFERASE 180 IU/L (15-46); BILIRUBIN,INDIRECT 0.8 mg/dl (0-1.1); BILIRUBIN,TOTAL 0.8 mg/dl (0.2-1.3); BLOOD UREA NITROGEN 38 mg/dl (7-20); CALCIUM 10.5 mg/dl (8.4-10.2); CARBON DIOXIDE 32 mmol/L (21-31); CHLORIDE 103 mmol/L (97-110); CREATINE KINASE < 20 IU/L (23-200); CREATININE 1.05 mg/dl (0.61-1.24); GLUCOSE 106 mg/dl (70-220); MAGNESIUM 1.9 mg/dl (1.7-2.5); POTASSIUM 3.6 mmol/L (3.5-5.1); SODIUM 140 mmol/L (135-144); TOTAL PROTEIN 5.7 g/dl (6.1-8.1)
[2018-12-05 05:41] LABS: B-TYPE NATRIURETIC PEPTIDE 24400 PG/ML (0-450)
[2018-12-05] MEDS: FUROSEMIDE 20 MG INJ IV ×2 (05:55→17:59)
[2018-12-05] MEDS: INSULIN ASPART [NOVOLOG] 3 ML PEN SC ×4 (08:45→20:14)
[2018-12-05] MEDS: METOPROLOL (XL) 25 MG TAB PO (09:00)
[2018-12-05] MEDS: ALLOPURINOL 100 MG TAB PO ×2 (09:01→20:13)
[2018-12-05] MEDS: FLUTICASONE/VILANTEROL 100-25 INH (09:01)
[2018-12-05] MEDS: FISH OIL 1,000 MG CAP PO (09:02)
[2018-12-05] MEDS: SENNA TAB PO ×2 (09:02→20:13)
[2018-12-05] MEDS: FAMOTIDINE 20 MG TAB PO (09:02)
[2018-12-05] MEDS: FOLIC ACID 0.4 MG TAB PO ×2 (09:02→20:13)
[2018-12-05] MEDS: MULTIVITAMINS THERAPEUTIC TAB PO (09:02)
[2018-12-05] MEDS: DOCUSATE SODIUM 100 MG CAP PO ×2 (09:02→20:13)
[2018-12-05] MEDS: GABAPENTIN 300 MG CAP PO ×3 (09:02→20:13)
[2018-12-05] MEDS: FINASTERIDE 5 MG TAB PO (09:02)
[2018-12-05] MEDS: ASCORBIC ACID 500 MG TAB PO (09:04)
[2018-12-05] MEDS: ENOXAPARIN 40 MG/0.4 ML SYG SC (09:12)
[2018-12-05] MEDS: DIGOXIN 500 MCG INJ IV (13:54)
[2018-12-05] MEDS: VANCOMYCIN HCL 1.25 GM in SOD CHLORIDE 0.9% 250 ML IVPB (14:00)
[2018-12-05] MEDS: HYDROCODONE/APAP (5/325) TAB PO (17:59)
[2018-12-05] MEDS: ATORVASTATIN 80 MG TAB PO (20:13)
[2018-12-05] MEDS: DOXAZOSIN 4 MG TAB PO (20:14)
[2018-12-05] MEDS: INSULIN GLARGINE [LANTus] (100 UNITS/ML) SYG SC (20:19)
[2018-12-06] MEDS: IPRATROPIUM (NEB) 0.5 MG/2.5 ML AMP HHN ×4 (01:16→20:18)
[2018-12-06] MEDS: LEVALBUTEROL (NEB) 1.25 MG/0.5 ML AMP HHN ×4 (01:16→20:18)
[2018-12-06] MEDS: ACCU-CHEK XX (02:00)
[2018-12-06 05:36] LABS: ADD MAN DIFF? NO
[2018-12-06 05:40] LABS: ABNORMAL IP MESSAGE 1; BASOPHILS % 0.4 % (0.0-2.0); EOSINOPHILS # 0.1 10^3/ul (0.0-0.5); EOSINOPHILS % 0.8 % (0.0-7.0); HEMATOCRIT 25.4 % (42.0-52.0); HEMOGLOBIN 8.1 g/dl (14.0-18.0); LYMPHOCYTES # 0.8 10^3/ul (0.8-2.9); MEAN CORPUSCULAR HGB CONC 31.9 g/dl (32.0-37.0); MEAN CORPUSCULAR VOLUME 62.9 fl (82.0-101.0); MONOCYTE # 0.8 10^3/ul (0.3-0.9); NEUTROPHIL # 9.4 10^3/ul (1.6-7.5); NEUTROPHILS % 83.8 % (39.0-77.0); NUCLEATED RED BLOOD CELLS # 0.1 10^3/ul (0.0-0.0); NUCLEATED RED BLOOD CELLS% 0.4 /100WBC (0.0-0.0); PLATELET COUNT 143 10^3/UL (140-415); POSITIVE DIFF @See below; RED BLOOD COUNT 4.04 10^6/ul (4.70-6.10); RED CELL DISTRIBUTION WIDTH 26.4 % (11.5-14.5)
[2018-12-06 05:40] LABS: WHITE BLOOD COUNT 11.2 10^3/ul (4.8-10.8)
[2018-12-06] MEDS: FUROSEMIDE 20 MG INJ IV ×2 (06:04→18:50)
[2018-12-06 06:21] LABS: ANION GAP 6 (5-13); BLOOD UREA NITROGEN 44 mg/dl (7-20); CALCIUM 10.7 mg/dl (8.4-10.2); CARBON DIOXIDE 30 mmol/L (21-31); CHLORIDE 105 mmol/L (97-110); CREATININE 0.99 mg/dl (0.61-1.24); GLUCOSE 93 mg/dl (70-220); POTASSIUM 3.5 mmol/L (3.5-5.1); SODIUM 141 mmol/L (135-144)
[2018-12-06] MEDS: METOPROLOL (XL) 25 MG TAB PO (09:00)
[2018-12-06] MEDS: INSULIN ASPART [NOVOLOG] 3 ML PEN SC ×4 (09:21→20:17)
[2018-12-06] MEDS: MULTIVITAMINS THERAPEUTIC TAB PO (09:31)
[2018-12-06] MEDS: ALLOPURINOL 100 MG TAB PO ×2 (09:31→20:14)
[2018-12-06] MEDS: FISH OIL 1,000 MG CAP PO (09:31)
[2018-12-06] MEDS: ASCORBIC ACID 500 MG TAB PO (09:31)
[2018-12-06] MEDS: FINASTERIDE 5 MG TAB PO (09:31)
[2018-12-06] MEDS: SENNA TAB PO ×2 (09:31→20:14)
[2018-12-06] MEDS: FLUTICASONE/VILANTEROL 100-25 INH (09:32)
[2018-12-06] MEDS: FAMOTIDINE 20 MG TAB PO (09:32)
[2018-12-06] MEDS: GABAPENTIN 300 MG CAP PO ×3 (09:32→20:14)
[2018-12-06] MEDS: FOLIC ACID 0.4 MG TAB PO ×2 (09:32→20:13)
[2018-12-06] MEDS: DOCUSATE SODIUM 100 MG CAP PO ×2 (09:32→20:14)
[2018-12-06] MEDS: ENOXAPARIN 40 MG/0.4 ML SYG SC (09:37)
[2018-12-06] MEDS: DIGOXIN 500 MCG INJ IV (14:02)
[2018-12-06] MEDS: VANCOMYCIN HCL 1.25 GM in SOD CHLORIDE 0.9% 250 ML IVPB (14:02)
[2018-12-06] MEDS: DOXAZOSIN 4 MG TAB PO (20:14)
[2018-12-06] MEDS: ATORVASTATIN 80 MG TAB PO (20:14)
[2018-12-06] MEDS: INSULIN GLARGINE [LANTus] (100 UNITS/ML) SYG SC (20:16)
[2018-12-06] MEDS: GENTAMICIN 350 MG in SOD CHLORIDE 0.9% 100 ML IVPB (20:17)
[2018-12-07] MEDS: ACCU-CHEK XX (01:26)
[2018-12-07] MEDS: IPRATROPIUM (NEB) 0.5 MG/2.5 ML AMP HHN ×4 (02:00→20:02)
[2018-12-07] MEDS: LEVALBUTEROL (NEB) 1.25 MG/0.5 ML AMP HHN ×4 (02:00→20:02)
[2018-12-07 05:25] LABS: ADD MAN DIFF? NO
[2018-12-07 05:34] LABS: WHITE BLOOD COUNT 11.9 10^3/ul (4.8-10.8)
[2018-12-07 05:35] LABS: ABNORMAL IP MESSAGE 1; BASOPHIL # 0.1 10^3/ul (0.0-0.1); BASOPHILS % 0.4 % (0.0-2.0); EOSINOPHILS % 0.3 % (0.0-7.0); HEMATOCRIT 27.4 % (42.0-52.0); HEMOGLOBIN 8.6 g/dl (14.0-18.0); LYMPHOCYTES % 8.2 % (15.0-51.0); MEAN CORPUSCULAR HEMOGLOBIN 20.1 pg (29.0-33.0); MEAN CORPUSCULAR HGB CONC 31.4 g/dl (32.0-37.0); MONOCYTES % 8.3 % (0.0-11.0); NEUTROPHIL # 9.7 10^3/ul (1.6-7.5); NEUTROPHILS % 81.5 % (39.0-77.0); NUCLEATED RED BLOOD CELLS # 0.1 10^3/ul (0.0-0.0); NUCLEATED RED BLOOD CELLS% 0.5 /100WBC (0.0-0.0); PLATELET COUNT 149 10^3/UL (140-415); POSITIVE DIFF @See below; RED BLOOD COUNT 4.28 10^6/ul (4.70-6.10); RED CELL DISTRIBUTION WIDTH 26.6 % (11.5-14.5)
[2018-12-07] MEDS: FUROSEMIDE 20 MG INJ IV ×2 (05:38→18:00)
[2018-12-07 06:36] LABS: ANION GAP 5 (5-13); BLOOD UREA NITROGEN 46 mg/dl (7-20); CALCIUM 11.4 mg/dl (8.4-10.2); CARBON DIOXIDE 33 mmol/L (21-31); CHLORIDE 105 mmol/L (97-110); CREATININE 1.23 mg/dl (0.61-1.24); GLUCOSE 113 mg/dl (70-220); POTASSIUM 3.5 mmol/L (3.5-5.1); SODIUM 143 mmol/L (135-144)
[2018-12-07] MEDS: INSULIN ASPART [NOVOLOG] 3 ML PEN SC ×4 (07:35→21:00)
[2018-12-07] MEDS: METOPROLOL (XL) 25 MG TAB PO (09:00)
[2018-12-07] MEDS: ALLOPURINOL 100 MG TAB PO ×2 (09:44→20:23)
[2018-12-07] MEDS: FINASTERIDE 5 MG TAB PO (09:44)
[2018-12-07] MEDS: FAMOTIDINE 20 MG TAB PO (09:44)
[2018-12-07] MEDS: DOCUSATE SODIUM 100 MG CAP PO ×2 (09:44→20:27)
[2018-12-07] MEDS: FOLIC ACID 0.4 MG TAB PO ×2 (09:44→20:27)
[2018-12-07] MEDS: GABAPENTIN 300 MG CAP PO ×4 (09:44→23:54)
[2018-12-07] MEDS: FISH OIL 1,000 MG CAP PO (09:45)
[2018-12-07] MEDS: ASCORBIC ACID 500 MG TAB PO (09:45)
[2018-12-07] MEDS: ENOXAPARIN 40 MG/0.4 ML SYG SC (09:46)
[2018-12-07] MEDS: SENNA TAB PO ×2 (09:50→20:27)
[2018-12-07] MEDS: FLUTICASONE/VILANTEROL 100-25 INH (09:50)
[2018-12-07] MEDS: MULTIVITAMINS THERAPEUTIC TAB PO (09:50)
[2018-12-07] MEDS: VANCOMYCIN HCL 1.25 GM in SOD CHLORIDE 0.9% 250 ML IVPB (15:37)
[2018-12-07] MEDS: ATORVASTATIN 80 MG TAB PO (20:25)
[2018-12-07] MEDS: DOXAZOSIN 4 MG TAB PO ×2 (20:25→23:54)
[2018-12-07] MEDS: INSULIN GLARGINE [LANTus] (100 UNITS/ML) SYG SC (21:11)
[2018-12-08] MEDS: LORAZEPAM 2 MG INJ IV ×3 (00:30→13:43)
[2018-12-08] MEDS: IPRATROPIUM (NEB) 0.5 MG/2.5 ML AMP HHN ×2 (01:21→08:24)
[2018-12-08] MEDS: LEVALBUTEROL (NEB) 1.25 MG/0.5 ML AMP HHN ×2 (01:21→08:25)
[2018-12-08] MEDS: ACCU-CHEK XX (02:00)
[2018-12-08] MEDS: FUROSEMIDE 20 MG INJ IV (06:24)
[2018-12-08 06:39] LABS: DIGOXIN 1.1 ng/ml (1.0-2.0)
[2018-12-08 06:47] LABS: BLOOD UREA NITROGEN 58 mg/dl (7-20)
[2018-12-08 06:47] LABS: CREATININE 1.29 mg/dl (0.61-1.24)
[2018-12-08] MEDS: INSULIN ASPART [NOVOLOG] 3 ML PEN SC ×2 (07:35→11:30)
[2018-12-08] MEDS: ENOXAPARIN 40 MG/0.4 ML SYG SC (09:00)
[2018-12-08] MEDS: FAMOTIDINE 20 MG TAB PO (09:00)
[2018-12-08] MEDS: METOPROLOL (XL) 25 MG TAB PO (09:00)
[2018-12-08] MEDS: FLUTICASONE/VILANTEROL 100-25 INH (09:00)
[2018-12-08] MEDS: MULTIVITAMINS THERAPEUTIC TAB PO (09:00)
[2018-12-08] MEDS: FISH OIL 1,000 MG CAP PO (09:00)
[2018-12-08] MEDS: ASCORBIC ACID 500 MG TAB PO (09:00)
[2018-12-08] MEDS: FINASTERIDE 5 MG TAB PO (09:00)
[2018-12-08] MEDS: morphine 2 MG INJ IV (09:30)
[2018-12-08] MEDS: GABAPENTIN 300 MG CAP PO (12:10)
[2018-12-08] MEDS ORDERED: ATROPINE 1% 5 ML OPH SL (13:30)
[2018-12-08] MEDS ORDERED: SCOPOLAMINE 1.5 MG PATCH TRANSDERM (13:30)
[2018-12-08] MEDS ORDERED: DIMETHICONE STICK TOP (13:30)
[2018-12-08] MEDS ORDERED: ALBUTEROL/IPRATROPIUM (NEB) 3 ML AMP HHN (13:30)
[2018-12-08] MEDS: morphine (DRIP) 100 MG/100 ML 100 ML IV (14:38)
[2018-12-08] MEDS: SOD CHLORIDE 0.9% 1,000 ML IV (14:45)
== END 2018-12-08 18:55 | disposition expired | DRG 871 ==
LOC: E/R 08:24 → 6WM 11-30 19:50 → ICU 12-01 12:25 → 2NE 11:17
PROVIDERS: Internal Medicine
PROC: 02HV33Z Insertion of Infusion Device into Superior Vena Cava, Percutaneous Approach (ICD-10-PCS; principal; 2018-12-01)
PROC: 5A09457 Assistance with Respiratory Ventilation, 24-96 Consecutive Hours, Continuous Positive Airway Pressure (ICD-10-PCS; 2018-12-01)
PROC: 0TPB70Z Removal of Drainage Device from Bladder, Via Natural or Artificial Opening (ICD-10-PCS; 2018-12-01)
PROC: 0T9B70Z Drainage of Bladder with Drainage Device, Via Natural or Artificial Opening (ICD-10-PCS; 2018-12-01)
PROC: 30233N1 Transfusion of Nonautologous Red Blood Cells into Peripheral Vein, Percutaneous Approach (ICD-10-PCS; 2018-12-02)
DX: A41.9 Sepsis, unspecified organism (principal); G93.41 Metabolic encephalopathy; I50.23 Acute on chronic systolic (congestive) heart failure; J96.01 Acute respiratory failure with hypoxia; I21.A1 Myocardial infarction type 2; J18.9 Pneumonia, unspecified organism; R65.21 Severe sepsis with septic shock; I33.0 Acute and subacute infective endocarditis; J96.02 Acute respiratory failure with hypercapnia; N39.0 Urinary tract infection, site not specified; C25.9 Malignant neoplasm of pancreas, unspecified; C78.00 Secondary malignant neoplasm of unspecified lung; C79.51 Secondary malignant neoplasm of bone; I48.2 Chronic atrial fibrillation; I11.0 Hypertensive heart disease with heart failure; I25.10 Atherosclerotic heart disease of native coronary artery without angina pectoris; D56.3 Thalassemia minor; D64.9 Anemia, unspecified; D69.6 Thrombocytopenia, unspecified; E11.9 Type 2 diabetes mellitus without complications; E78.5 Hyperlipidemia, unspecified; J44.9 Chronic obstructive pulmonary disease, unspecified; N40.0 Benign prostatic hyperplasia without lower urinary tract symptoms; R31.9 Hematuria, unspecified; R79.1 Abnormal coagulation profile; B95.2 Enterococcus as the cause of diseases classified elsewhere; Z66 Do not resuscitate; Z51.5 Encounter for palliative care; Z95.5 Presence of coronary angioplasty implant and graft; Z88.0 Allergy status to penicillin; Z88.2 Allergy status to sulfonamides; Z87.891 Personal history of nicotine dependence; Z95.2 Presence of prosthetic heart valve; Z79.01 Long term (current) use of anticoagulants; Z79.84 Long term (current) use of oral hypoglycemic drugs; Z79.52 Long term (current) use of systemic steroids
CPT/HCPCS: 36415; 36430; 36569; 36600; 70450; 71045; 74176; 76937; 80048; 80053; 80061; 80162; 80170; 80202; 81001; 82140; 82378; 82550; 82553; 82565; 82728; 82803; 82962; 83036; 83540; 83605; 83690; 83735; 83880; 84100; 84436; 84439; 84443; 84479; 84481; 84484; 84520; 85025; 85610; 85730; 86301; 86704; 86709; 86803; 86850; 86900; 86901; 86920; 87040-91; 87081; 87086; 87340; 92526; 92610; 93005; 93306; 93970; 94640; 94660; 94664; 96374; 96375; 99285-25